=== PATIENT | female | born 1970 | race Hispanic/Latino ===

== ENCOUNTER 2019-03-01 12:24 | Emergency (ER) | payer MEDICAID, OTHER ==
[2019-03-01] MEDS ORDERED: SODIUM CHLORIDE 0.9% 1000ML 1,000 ML IV ONE (12:39)
[2019-03-01 12:57] LABS: BASOPHILS % (AUTO) 1.4 % (0.0-5.0); EOSINOPHILS % (AUTO) 2.4 % (0.0-8.0); HEMATOCRIT 42.5 % (36-48); MEAN CORPUSCULAR HEMOGLOBIN 31.7 pg (27.0-33.0); MEAN CORPUSCULAR HGB CONC 35.8 g/dL (32.0-36.0); MEAN CORPUSCULAR VOLUME 88.5 fL (79-99); MONOCYTES % (AUTO) 7.2 % (3.0-13.0); PLATELET COUNT (AUTO) 310 K/uL (130-400)
[2019-03-01 13:01] LABS: APPEARANCE,URINE SL CLOUDY (CLEAR); BILIRUBIN,URINE NEGATIVE (NEGATIVE); COLOR,URINE YELLOW (YELLOW); GLUCOSE, URINE (UA) NEGATIVE (NEGATIVE); KETONES,URINE NEGATIVE (NEGATIVE); LEUKOCYTE ESTERASE ,URINE NEGATIVE (NEGATIVE); NITRATE,URINE NEGATIVE (NEGATIVE); OCCULT BLOOD,URINE TRACE-LYSED (NEGATIVE); PH,URINE 5.5 (5.0-8.0); PROTEIN,URINE NEGATIVE (NEGATIVE); UROBILINOGEN,URINE 0.2 mg/dL (0.2-1.0)
[2019-03-01 13:13] LABS: BACTERIA,URINE Moderate /HPF (None Seen); MUCUS,URINE Few LPF (None Seen)
[2019-03-01 13:13] LABS: ALBUMIN 4.2 g/dL (3.5-5.0); BILIRUBIN,TOTAL 0.4 mg/dL (0.2-1.0); TOTAL PROTEIN, SERUM 8.7 g/dL (6.0-8.3)
[2019-03-01] MEDS ORDERED: IBUPROFEN 200 MG TAB ONE (13:14)
[2019-03-01 13:17] LABS: POTASSIUM 2.8 mmol/L (3.5-5.1)
[2019-03-01 13:20] LABS: CREATINE KINASE, TOTAL 49 U/L (21-232); MYOGLOBIN 30 ng/mL (10-92); TROPONIN I < 0.04 ng/mL (0.00-0.06)
[2019-03-01 13:26] LABS: INR 0.97 (0.85-1.15); PARTIAL THROMBOPLASTIN TIME 28.2 SEC (26.3-35.5); PROTHROMBIN TIME 10.2 SEC (9.6-11.6)
[2019-03-01] MEDS ORDERED: IOHEXOL-350 75 ML VIAL IV ONE (13:42)
[2019-03-01] MEDS ORDERED: POTASSIUM CHLORIDE 20 MEQ ERTAB PO ONE (14:31)
[2019-03-01] MEDS ORDERED: HYDROCODONE/ACETAMINOPHEN 10/325 MG TAB ONE (14:57)
== END 2019-03-01 15:26 | disposition home or self-care (01) ==
LOC: EDH 12:24
DX: R10.2 Pelvic and perineal pain (principal); R10.31 Right lower quadrant pain; R50.9 Fever, unspecified; I10 Essential (primary) hypertension; F32.9 Major depressive disorder, single episode, unspecified; Z90.710 Acquired absence of both cervix and uterus; Z90.49 Acquired absence of other specified parts of digestive tract
CPT/HCPCS: 36415; 74177; 80053; 81001; 82550; 83605; 83690; 83874; 84484; 85025; 85610; 85730; 87040 ×2; 87088; 87804 ×2; 99285; J7030; Q9967

== ENCOUNTER 2022-07-21 17:53 | Emergency (ER) | payer MEDICAID ==
[~2022-07-21] VITALS: Ht 154.9 cm; Wt 84.4 kg
[2022-07-21 18:07] VITALS: BP 153/79
[2022-07-21] MEDS ORDERED: KETOROLAC 30MG VIAL (30MG/ML) IM ONE (19:30)
[2022-07-21] MEDS ORDERED: IBUP-2070 PO (20:47)
[2022-07-21] MEDS ORDERED: ACETAMINOPHEN WITH CODEINE 1 TAB TAB PO ONE (21:00)
== END 2022-07-21 20:58 | disposition home or self-care (01) ==
LOC: EDH 17:53
DX: R68.84 Jaw pain (principal); I10 Essential (primary) hypertension; Z90.710 Acquired absence of both cervix and uterus; Z90.49 Acquired absence of other specified parts of digestive tract; Z98.890 Other specified postprocedural states; Z85.3 Personal history of malignant neoplasm of breast
CPT/HCPCS: 99284; 76536; 96372; J1885

== ENCOUNTER 2023-10-21 18:29 | Emergency (ER) | payer MEDICAID ==
[~2023-10-21] VITALS: Ht 154.9 cm; Wt 89.8 kg
[~2023-10-21 18:29] MED LIST: IBUP-2070 PO
[2023-10-21 22:23] LABS: BASOPHILS # (AUTO) 0.04 K/uL (0.00-0.20); BASOPHILS % (AUTO) 0.3 % (0.0-5.0); EOSINOPHILS # (AUTO) 0.32 K/uL (0.00-0.70); EOSINOPHILS % (AUTO) 2.5 % (0.0-8.0); HEMATOCRIT 42.1 % (36-48); IMMATURE GRANULOCYTE ABSOLUTE 0.06 K/uL (0-1); LYMPHOCYTES # (AUTO) 1.9 K/uL (1.0-4.8); LYMPHOCYTES % (AUTO) 15.3 % (21.0-51.0); MEAN CORPUSCULAR HEMOGLOBIN 29.8 pg (27.0-33.0); MEAN CORPUSCULAR VOLUME 90.1 fL (79-99); MONOCYTES # (AUTO) 0.9 K/uL (0.1-1.0); MONOCYTES % (AUTO) 6.8 % (3.0-13.0); NEUTROPHILS # (AUTO) 9.4 K/uL (1.8-7.7); NEUTROPHILS % (AUTO) 74.6 % (40.0-77.0); PLATELET COUNT (AUTO) 272 K/uL (130-400); RED BLOOD CELL COUNT(AUTO) 4.67 MIL/uL (4.00-5.50); RED CELL DISTRIBUTION WIDTH 14.1 % (11.0-15.5); WHITE BLOOD COUNT (AUTO) 12.6 K/uL (4.8-10.8)
[2023-10-21 22:25] LABS: APPEARANCE,URINE CLEAR (CLEAR); BILIRUBIN,URINE NEGATIVE (NEGATIVE); COLOR,URINE LIGHT-YELLOW (YELLOW); GLUCOSE, URINE (UA) NEGATIVE (NEGATIVE); KETONES,URINE NEGATIVE (NEGATIVE); LEUKOCYTE ESTERASE ,URINE NEGATIVE Leu/uL (NEGATIVE); NITRATE,URINE NEGATIVE (NEGATIVE); PH,URINE 5.5 (5.0-8.0); PROTEIN,URINE NEGATIVE (NEGATIVE); UROBILINOGEN,URINE 0.2 mg/dL (0.2-1.0)
[2023-10-21 22:26] LABS: ADD UA MICROSCOPIC YES
[2023-10-21 22:27] LABS: BACTERIA,URINE RARE /HPF (None Seen); MUCUS,URINE RARE LPF (None Seen); SQUAMOUS EPITHELIAL CELL,UR FEW /HPF (0-2); WBC,URINE 0-1 /HPF (0-1)
[2023-10-21] MEDS: MORPHINE 4 MG SYG IVP ONE (22:36)
[2023-10-21] MEDS: 0.9%NACL 1000ML 1,434 ML IV ONE (22:37)
[2023-10-21] MEDS: ONDANSETRON 4MG INJ IVP ONE (22:37)
[2023-10-21 22:40] LABS: CREATININE 0.7 mg/dL (0.5-1.0); POTASSIUM 3.7 mmol/L (3.5-5.1)
[2023-10-21 22:45] LABS: BILIRUBIN,TOTAL 0.3 mg/dL (0.2-1.0); TOTAL PROTEIN, SERUM 8.4 g/dL (6.0-8.3)
[2023-10-21] MEDS ORDERED: IOHEXOL-350 50ML VIAL IV ONE (22:50)
[2023-10-21 23:01] LABS: INR <= 0.93 (0.85-1.15); PROTHROMBIN TIME 10.6 SEC (9.6-11.6)
[2023-10-21] MEDS ORDERED: AMOX1TAB16 PO (23:58)
[2023-10-21] MEDS ORDERED: ACET-2079 PO (23:58)
[2023-10-22 00:12] VITALS: BP 142/75; PULSE 89; RESP 20; O2SAT 99
== END 2023-10-22 00:17 | disposition home or self-care (01) ==
LOC: EDH 18:29
DX: K04.7 Periapical abscess without sinus (principal)
CPT/HCPCS: 99285; 96374; 70487; 96361; 96375; 82550; 84484; 80053; 85025; 85610; 85730; 87040 ×2; 87088; 83605; 81001; 36415; J7030; J2405; J2270; Q9967